=== PATIENT | female | born 1960 | race Caucasian/White ===

== ENCOUNTER 2023-09-20 06:57 | Day surgery (SDC) | payer BC, SELFPAY ==
[2023-09-20 09:03] VITALS: BMI 21.8
[2023-09-20 09:05] VITALS: BMI 21.8
[2023-09-20 09:06] VITALS: BP 155/92
[2023-09-20 10:46] VITALS: BP 112/71
[2023-09-20 11:00] VITALS: BP 117/78
[2023-09-20 11:15] VITALS: BP 119/80
== END 2023-09-20 11:20 | disposition home or self-care (01) ==
LOC: GI 06:57
PROVIDERS: ATTENDING PHYSICIAN Internal Medicine Gastroenterology
DX: D12.2 Benign neoplasm of ascending colon (principal); K64.0 First degree hemorrhoids; Z98.890 Other specified postprocedural states
CPT/HCPCS: 45390; 88305

== ENCOUNTER → 2024-03-09 12:56 | Outpatient (REF) | payer BC, SELFPAY | LOC: HWRAD 12:56 | PROVIDERS: ATTENDING PHYSICIAN Family Medicine | DX: M85.80 Other specified disorders of bone density and structure, unspecified site (principal); Z12.31 Encounter for screening mammogram for malignant neoplasm of breast | CPT/HCPCS: 77063; 77067; 77080 ==

== ENCOUNTER 2024-11-06 06:24 | Day surgery (SDC) | payer MEDICARE, SELFPAY | END 2024-11-06 14:35 | disposition home or self-care (01) | LOC: GI 06:24 | PROVIDERS: ATTENDING PHYSICIAN Internal Medicine Gastroenterology; FAMILY PHYSICIAN Family Medicine | DX: Z12.11 Encounter for screening for malignant neoplasm of colon (principal); K57.30 Diverticulosis of large intestine without perforation or abscess without bleeding; K64.0 First degree hemorrhoids; K63.5 Polyp of colon; D12.3 Benign neoplasm of transverse colon; Z98.890 Other specified postprocedural states; Z86.0100 Personal history of colon polyps, unspecified | CPT/HCPCS: 45385; 45380; 88305 ==

== ENCOUNTER → 2025-04-14 15:08 | Outpatient (REF) | payer MEDICARE, SELFPAY | LOC: WDC 15:08 | PROVIDERS: ATTENDING PHYSICIAN Obstetrics & Gynecology; FAMILY PHYSICIAN Family Medicine | DX: Z12.31 Encounter for screening mammogram for malignant neoplasm of breast (principal) | CPT/HCPCS: 77063; 77067 ==

== ENCOUNTER 2025-04-27 11:40 | Emergency (ER) | payer MEDICARE, SELFPAY ==
[2025-04-27 11:47] VITALS: BP 155/97
--- NOTE | 2025-04-27 14:08 | ED.GENMED ---
History of Present Illness
General
Chief Complaint: Musculo-Skeletal Complaint
Source: patient
Exam Limitations: none
Time Seen by Provider: 04/27/25 12:06
History of Present Illness
History of Present Illness:
Patient tripped falling forward yesterday. Landed on both knees and both hands. Really only complaining of right knee pain however. Has difficulty locking the knee. No head injury no loss of consciousness. No thinners.
Past History
Past History
ED Past Medical History: None
ED Past Surgical History: Orthopedic
Phy Exam
Physical Exam
Physical Exam:
TRAUMA EXAM:
VITAL SIGNS: Vital signs reviewed, cooperative
DISTRESS: No active disease
FACE AND SCALP: No scalp or facial trauma
NECK: Supple nontender
RESPIRATORY: No distress
CARDIAC: Regular rate and rhythm
SKIN: Area of ecchymosis over the right knee
EXTREMITIES: Both hands palms and wrists are nontender of any significance. No swelling no deformity. 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 Left knee is stable. Straight leg raise without issues. No significant point tenderness. No swelling. Right knee has some
ecchymosis over the patella. Unable to fully lock. Joint effusion clinically. Joint effusion is not large however. Appears stable. Good distal pulses
NEUROLOGICAL: Alert, oriented, no motor deficits
PSYCH: Mood affect normal
Course
Orders/Labs/Results
Orders:
Orders
04/27/25 11:46
Knee, Right 4 or More Views [CR Knee- Right 4 Or More View*] Urgent
Comment:
Reason For Exam: fall
04/27/25 14:08
Crutches-Treatment ONCE
Knee Immobilizer Right-Treatme ONCE
Vital Signs
Initial and Last Documented VS:
Initial Vital Signs
Temp Pulse Resp BP Pulse Ox
97.8 F 94 12 155/97 99
04/27/25 11:47 04/27/25 11:47 04/27/25 11:47 04/27/25 11:47 04/27/25 11:47
Last Documented Vital Signs
Temp Pulse Resp BP Pulse Ox
97.8 F 76 20 118/79 99
04/27/25 11:47 04/27/25 14:52 04/27/25 14:52 04/27/25 14:52 04/27/25 14:52
MDM/Problems Addressed
Differential Diagnosis Includes:
Traumatic knee effusion. Immobilizer crutches and orthopedic follow-up
*Radiology
Radiology exam reviewed: preliminary read by ED provider (Negative)
*Pulse Oximetry
SaO2: 99
Oxygen Mode of Delivery: Room air
Patient hypoxic: no
*Critical Care Note
Total Time (30-74mins, 75-104mins- exclusive of procedures): Not Applicable
ED Attending Note
-
Portions of this chart may have been created with voice recognition software.� Occasional wrong word or��sound alike� substitutions may have occurred due to the inherent limitations of voice recognition software.
Discharge Plan
Departure
Patient Disposition: Home (Routine Discharge)
Date of Disposition: 04/27/25
Time of Disposition: 14:13
Patient with high blood pressure during this ER visit?: Yes
Discharge Problem:
Traumatic right knee effusion
Instructions: Knee Sprain (DC), BLOOD PRESSURE
Referrals:
Carlos Manuel London MD [Active, Orthopedics] - Follow up in 5-7 days
Nohemi Plummer MD [Family Provider, Family Practice]
Activity Restrictions/Additional Instructions:
Call orthopedics for close follow-up
Use knee immobilizer and crutches to decrease weightbearing
Tylenol or Advil for pain
Interventions
Interventions:
*Risk Screen - Suicide Last Done: 04/27/25 11:47
*General Assessment Last Done: 04/27/25 11:47
*Neglect/Abuse Screening Last Done: 04/27/25 11:47
*ED COVID-19 Vaccine History Last Done: 04/27/25 11:47
*Nursing Disposition Last Done: 04/27/25 14:52
ED-Musculoskeletal Assessment Last Done: 04/27/25 13:00
Discharge Date and Time
Discharge Date/Time: 04/27/25 14:53
Print Language: MONGOLIAN
[2025-04-27 14:52] VITALS: BP 118/79
== END 2025-04-27 14:53 | disposition home or self-care (01) ==
LOC: EMR 11:40
PROVIDERS: EMERGENCY PHYSICIAN Emergency Medicine; FAMILY PHYSICIAN Family Medicine
DX: S80.01XA Contusion of right knee, initial encounter (principal); M25.462 Effusion, left knee; W01.0XXA Fall on same level from slipping, tripping and stumbling without subsequent striking against object, initial encounter
CPT/HCPCS: 29505; 99283; 73564

== ENCOUNTER → 2025-06-17 08:50 | Outpatient (REF) | payer MEDICARE, SELFPAY | LOC: WDC 08:50 | PROVIDERS: ATTENDING PHYSICIAN Nurse Practitioner Family | DX: N64.4 Mastodynia (principal) | CPT/HCPCS: 76642 ==

== ENCOUNTER → 2025-07-29 17:24 | Outpatient (REF) | payer MEDICARE, SELFPAY | LOC: PAVMRI 17:24 | PROVIDERS: ATTENDING PHYSICIAN Physician Assistant; FAMILY PHYSICIAN Family Medicine | DX: S63.502A Unspecified sprain of left wrist, initial encounter (principal) | CPT/HCPCS: 73221 ==